=== PATIENT | female | born 1990 | race Caucasian/White ===

== ENCOUNTER 2017-03-30 15:50 | Emergency (ER) | payer OTHER ==
--- NOTE | 2017-03-30 16:54 | OBHP ---
Datetime: 03/30/2017 16:30 IP Adm Impression: , intrauterine IP Admit Plan: Observation/Evaluation Admit Comment, IP Provider: IUP at 36w sent from [facility] at [facility] for FH 90-120's on sono. N o SROM. No VB +FM PNC: CP Dr Marte / chart rev'd Consanguity/1st cousin PMH: denies PSH: denies NKA POBH: PGYNH: denies STD A: IUP at 36w ?low FH PLAN: prolonged NST Pelvic Type - PN: Adequate Extremities - PN: Normal Abdomen - PN: Normal Back - PN: Normal Breast - PN: Not Done Lungs - PN: Normal Heart - PN: Normal Thyroid - PN: Normal Neurologic - PN: Normal HEENT - PN: Normal General - PN: Normal Presentation-Admit: Vertex FHR - Baseline A Provider: 120 Membranes, Provider: Intact Pool Provider: Negative IP Hx Assessment: The History has been Reviewed and is Current EGA AdmitDate IP: 36.1 Vital Signs Provider: Reviewed; Within Normal Limits IP Chief Complaint: Other NICHD Variability Prov Fetus A: Moderate 6-25bpm NICHD Accel Fetus A IP Provider: [id number] FHR Category Provider Fetus A: Category I NICHD Decel Fetus A IP Provider: None Genitourinary Exam: Normal DTRs - PN: Normal
--- NOTE | 2017-03-30 17:18 | OBHP ---
Datetime: 03/30/2017 17:17 Admit Comment, IP Provider: RF 120's +LTV+ accels Occ CTX She feels +FM SVE 1cm long high. Discharge home and follow up next week as scheduled labor instructoins Datetime: 03/30/2017 16:30 EGA AdmitDate IP: 36.1
--- NOTE | 2017-03-30 17:20 | OBDCSUM ---
Datetime: 03/30/2017 17:15 Discharged to, Provider: Home Follow up at, Provider: Dr Marte Disch Instr Activity: Bedrest Disch Instr Diet: Regular Discharge Diagnosis, Provider: Katlyn Labor - Undelivered Discharge Time: 03/30/2017 17:15 Follow up in weeks, Provider: next week Disch Referrals: None Discharge Diagnosis Prov Other: +FM; reactive NST
[2017-03-30 22:01] VITALS: BP 112/80; PULSE 83; TEMP 98; O2SAT 100
== END 2017-03-30 17:15 | disposition home or self-care (01) ==
LOC: H.EROB2 15:50 → H.EROB 16:10 → H.EROB2 17:15
DX: O47.03 False labor before 37 completed weeks of gestation, third trimester (principal); Z3A.36 36 weeks gestation of pregnancy